=== PATIENT | female | born 1975 | race African-American/Black ===

== ENCOUNTER 2021-09-04 19:17 | Emergency (ER) | payer BC, OTHER ==
[~2021-09-04] VITALS: Ht 170.2 cm; Wt 131.1 kg
[2021-09-04 20:11] LABS: ABSOLUTE NEUTROPHILS 3.3 thou/uL (1.4-8.2); BASOPHILS 0.5 % (0.0-2.0); EOSINOPHILS 1.9 % (0.0-3.0); HEMOGLOBIN 12.1 gm/dL (12.0-15.0); LYMPHOCYTES 39.8 % (24.0-44.0); MCH 27.8 pg (26.0-34.0); MCHC 32.6 g/dL (28.0-37.0); MCV 85.3 fL (80.0-100.0); MONOCYTES 9.9 % (1.0-8.0); PLATELET COUNT 230 thou/uL (150-400); POLYS 47.9 % (36.0-66.0); RBC 4.34 mil/uL (4.20-5.00); RDW 13.4 % (10.5-14.5); WBC 6.8 thou/uL (4.0-11.0)
[2021-09-04 20:19] LABS: CALCIUM 8.7 mg/dL (8.5-10.1); CREATININE 0.8 mg/dL (0.6-1.0); POTASSIUM 4.1 mmol/L (3.5-5.1)
[2021-09-04] MEDS ORDERED: MOBIC7.5 MG PO (20:57)
[2021-09-04] MEDS ORDERED: MEDROLDOSEPACK PO (20:57)
[2021-09-04 21:13] VITALS: BP 148/92
--- NOTE | 2021-09-05 07:36 | EKG ---
[place] [address] [facility] [place] [employer] [place] [address] ELECTROCARDIOGRAM REPORT Name: LEATHA RICO Room #: DEP LIANET [place]#: [id number] Admission: 09/04/21 Attend Phys: Discharge: 09/04/21 Date of : 75 Report #: [id number] [facility] ED Test Date: 2021-09-04 Test Time: 19:21:35 Pat Name: LEATHA RICO Department: Room: Gender: F Efficiency Analyst: angela : 1975 Requested By: Aditya Ahuja Order Number: [id number] MD: Jann Vyas Measurements Intervals [place] Rate: 80 P: 4 AR: 135 QRS: -6 QRSD: 107 T: -45 QT: 390 QTc: 450 Interpretive Statements Sinus rhythm Left ventricular hypertrophy Nonspecific T abnormalities, diffuse leads No previous ECG available for comparison Electronically Signed On 09-05-2021 7:36:06 CDT by Jann Vyas [email or web address] <ELECTRONICALLY SIGNED> By: Jann Vyas MD, [facility] 09/05/21 0736 20 20 Jann Vyas MD, FACC /EPI
== END 2021-09-04 21:15 | disposition home or self-care (01) ==
LOC: ER 19:17
PROVIDERS: Nurse Practitioner
DX: M94.0 Chondrocostal junction syndrome [Tietze] (principal); R07.89 Other chest pain; J45.909 Unspecified asthma, uncomplicated; F41.9 Anxiety disorder, unspecified; F32.9 Major depressive disorder, single episode, unspecified; Z88.2 Allergy status to sulfonamides

== ENCOUNTER → 2021-09-22 | Outpatient (CLI) | payer BC, OTHER ==
[~2021-09-22] MED LIST: MEDROLDOSEPACK PO; MOBIC7.5 MG PO
== END ==
LOC: SJCVCIMAG 14:34
PROVIDERS: ATTEND Internal Medicine Cardiovascular Disease
DX: R00.1 Bradycardia, unspecified (principal); R00.0 Tachycardia, unspecified; I11.9 Hypertensive heart disease without heart failure; R06.00 Dyspnea, unspecified; R07.9 Chest pain, unspecified